=== PATIENT | female | born 1990 | race Caucasian/White ===

== ENCOUNTER 2016-10-30 16:38 | Emergency (ER) | payer OTHER ==
[~2016-10-30 16:38] MED LIST: ABILIFY; ACETAMINOPHEN; ACETAMINOPHEN PO; AMOXICILLIN PO; AMOXICILLIN500 M1 PO; ANSAID100 MG PO; ASPIRIN PO; BACTRIM DS TABL1 TA1 PO; BENADRYL; BENTYL10 MG PO; BENZONATATE PO; BIRTH CONTROL; BIRTH CONTROL PILL; BIRTH CONTROL PILL PO; CARAFATE1 G PO; CELEXA PO; CELEXA10 MG PO; CIPRO PO; DESYREL100 MG PO; DESYREL150 M1 PO; DIAZEPAM PO; DIFLUCAN PO; DOXEPIN HCL50 MG PO; DOXEPIN HCL75 MG PO; FERROUS GL325 ( 36 ) PO; FLEXERIL10 M1 PO; FOLIC ACID1 MG PO; FOLIC ACID800 MCG PO; GABAPENTIN300 MG PO; HYDROCODON-ACE1 EAC5 PO; HYDROCODON-ACE1 EAC7 PO; IBUPROFEN; IBUPROFEN PO; IBUPROFEN800 MG PO; INDERAL20 MG PO; KADIAN10 MG PO; KCL PO; KLONOPIN1 MG PO; KLONOPIN2 MG PO; LOPRESSOR PO; LORTAB 10-5001 EACH PO; LORTAB 10/500 T1 TAB PO; LORTAB 5/500 TA1 TA1 PO; LORTAB 7.5-5001 TAB PO; LYRICA; LYRICA PO; MACROBID100 MG PO; MEDROL PO; MEDROL4 MG/DOSE- PO; MOTRIN400 MG PO; MULTI-DAY VITAM1 TAB PO; MULTIVITAMIN1 UDCAP PO; NAPROSYN500 MG PO; NAPROXEN; NEURONTIN; NEURONTIN PO; NICOTINE TRANSD21 MG EXT; NORFLEX100 M1 PO; OMEPRAZOLE40 MG PO; PAXIL PO; PEN-VEE K PO; PERCOCET 10-651 EACH PO; PERCOCET 10/3251 TAB PO; PERCOCET 7.5-31 EACH PO; PERCOCET10 PO; PERCOCET5/325 PO; PHENERGAN SUPP25 MG PR; PHENERGAN25 MG PO; PREDNISONE PO; PRENATAL VITAMI1 TA3 PO; PRENATAL1 TA1; PRENATAL1 TA1 PO; PRILOSEC20 MG PO; PROZAC40 MG PO; PYRIDIUM PO; REMERON30 MG PO; REMERON45 MG PO; RESTORIL PO; ROBAXIN PO; SOMA PO; TEMAZEPAM; TOPAMAX; TOPAMAX50 MG DOB; TOPAMAX50 MG PO; TRAMADOL HCL50 M1 PO; TRAZODONE; TYLENOL #3 PO; ULTRAM PO; VICODIN 5/500 T1 TAB PO; VICODIN PO; XANAX PO; XANAX1 MG PO; ZANAFLEX PO; ZOFRAN ODT4 MG PO; ZOLOFT; ZOLOFT50 MG PO; [UNRECOGNIZED DRUG - OTHER] PO; [UNRECOGNIZED DRUG - REMARK]
[2016-10-30 17:33] LABS: BASOPHIL# 0.1 X10e3 (0-0.3); BASOPHIL% 1.2 % (0-2.5); EOSINOPHIL# 0.2 X10e3 (0-0.7); EOSINOPHIL% 2.9 % (0.0-7.0); HEMATOCRIT 34.2 % (35.0-45.0); HEMOGLOBIN 11.4 gm/dL (12.0-16.0); LYMPHOCYTE# 1.8 X10e3 (1.0-3.5); LYMPHOCYTE% 29.8 % (17.0-45.0); MEAN CELL VOLUME 81.8 FL (83-96); MEAN CORPUSCULAR HEMOGLOBIN 27.3 PG (28-34); MEAN CORPUSCULAR HGB CONC 33.4 g/dL (30-36); MEAN PLATELET VOLUME 8.3 FL (6.5-11.5); MONOCYTE# 0.5 X10e3 (0-1.0); MONOCYTE% 7.6 % (3.0-12.0); NEUTROPHIL# 3.6 X10e3 (1.5-7.1); NEUTROPHIL% 58.5 % (40-75); PLATELET COUNT 222 X10e3 (140-420); RED BLOOD COUNT 4.18 X10e (3.90-5.30); WHITE BLOOD COUNT 6.1 X10e3 (4.0-10.5)
[2016-10-30 17:41] LABS: DIFF IND NO
[2016-10-30 17:57] LABS: ALBUMIN SERUM 3.7 g/dL (3.5-5.0); BILIRUBIN,TOTAL 0.7 mg/dL (0.2-2.0); CALCIUM SERUM 8.7 mg/dL (8.4-10.2); GLOM FILT RATE Estimated 77.2 mL/min (>60); PROTEIN TOTAL SERUM 6.9 g/dL (6.0-8.3)
[2016-10-30 18:00] LABS: POTASSIUM 2.7 mmol/L (3.5-5.1)
[2016-10-30 19:53] LABS: URINE SOURCE CLEAN CATCH
[2016-10-30 19:55] LABS: URINE APPEARANCE CLEAR; URINE BILIRUBIN NEG (NEG); URINE BLOOD 1+ (NEG); URINE COLOR YELLOW; URINE GLUCOSE NEG (NORM); URINE KETONE NEG (NEG); URINE LEUKOCYTE ESTERASE NEG (NEG); URINE NITRATE NEG (NEG); URINE PROTEIN NEG (NEG); URINE SPECIFIC GRAVITY <=1.005 (1.003-1.035); URINE UROBILINOGEN 0.2 MG/DL (NORM)
[2016-10-30 19:57] LABS: MICRO INDICATED? YES
[2016-10-30 20:03] LABS: CULTURE INDICATED? NO; URINE BACTERIA NEG (NEG); URINE SQUAMOUS EPITHELIAL CELL OCCAS /[HPF]
== END 2016-10-30 20:58 | disposition home or self-care (01) ==
LOC: SED 16:38
PROVIDERS: Nurse Practitioner Family
DX: E87.6 Hypokalemia (principal); M79.605 Pain in left leg; R10.9 Unspecified abdominal pain; F17.200 Nicotine dependence, unspecified, uncomplicated; Z79.899 Other long term (current) drug therapy; V89.2XXA Person injured in unspecified motor-vehicle accident, traffic, initial encounter
CPT/HCPCS: 36415; 80053; 81003; 83605; 84703; 85025; 96361; 96365; 99283